=== PATIENT | female | born 1950 | race Caucasian/White ===

== ENCOUNTER 2023-11-27 09:05 | Outpatient (CLI) | payer MEDICARE, OTHER, SELFPAY ==
[2023-11-27 16:30] LABS: Basophils # 0.1 K/mm3 (0-0.2); Basophils % 1.1 % (0.1-2.0); Eosinophils # 0.2 K/mm3 (0.0-0.4); Eosinophils % 2.8 % (0.1-12.0); Hematocrit 45.4 % (37.0-47.0); Hemoglobin 14.2 g/dL (12.2-16.2); Lymphocytes # 1.6 K/mm3 (0.7-4.5); Lymphocytes % 22.4 % (10-50); Mean Corpuscular HGB Conc 31.3 g/dL (31.8-35.4); Mean Corpuscular Hemoglobin 30.8 pg (27.0-31.2); Mean Corpuscular Volume 98.4 fl (81-99); Mean Platelet Volume 11.2 fl (7.4-10.4); Monocytes # 0.8 K/mm3 (0.1-1.0); Monocytes % 11.4 % (1.7-9.3); Neutrophils # 4.5 K/mm3 (1.8-7.8); Neutrophils % 62.4 % (37.0-80.0); Platelet Count 312 K/mm3 (142-424); Red Blood Count 4.61 M/mm3 (4.20-5.40); Red Cell Distribution Width 13.7 % (11.5-17.5); White Blood Count 7.2 K/mm3 (4.8-10.8)
[2023-11-27 17:18] LABS: Alanine Aminotransferase 20 U/L (12-78); Albumin Level 3.8 g/dl (3.5-5.0); Albumin/Globulin Ratio 1.2 (1.1-1.8); Alkaline Phosphatase 70 U/L (38-126); Aspartate Amino Transferase 25 U/L (14-36); Bilirubin,Total 0.6 mg/dl (0.2-1.3); Blood Urea Nitrogen 12 mg/dl (7-17); Carbon Dioxide 28 mmol/L (22.0-30.0); Chloride 108 mmol/L (98-107); Chol/HDL Ratio 3.7 (1-3.5); Cholesterol 184 mg/dl (140-200); Estimated Glomerular Filt Rate 61 ml/min (>60); GFR (African American) 74 ML/MIN (>60); Globulin 3.1 g/dL (1.3-3.2); Glucose 111 mg/dl (74-100); HDL Cholesterol 50 mg/dl (40-60); Sodium 140 mmol/L (136-145); Total Protein,Serum 6.9 g/dl (6.3-8.2); Triglycerides 148 mg/dl (30-150); VLDL Cholesterol 30 mg/dL (0-40)
[2023-11-27 17:29] LABS: Direct LDL Cholesterol 95.72 mg/dL (100-129)
[2023-11-27 17:37] LABS: 25-OH Vitamin D, Total 32.7 ng/mL (30-100)
[2023-11-27 17:46] LABS: Thyroid Stimulating Hormone 3.25 uIU/mL (0.465-4.68)
== END 2023-11-27 23:59 | disposition home or self-care (01) ==
LOC: LAB.DROPOF 11-28 12:27
PROVIDERS: PCP Nurse Practitioner Family; Visit Provider Nurse Practitioner Family
DX: J44.9 Chronic obstructive pulmonary disease, unspecified (principal); I25.10 Atherosclerotic heart disease of native coronary artery without angina pectoris; E03.9 Hypothyroidism, unspecified; R53.83 Other fatigue; E55.9 Vitamin D deficiency, unspecified
CPT/HCPCS: 80053; 80061; 82306; 84443; 85025

== ENCOUNTER 2023-12-12 13:01 | Outpatient (CLI) | payer MEDICARE, OTHER, SELFPAY ==
--- NOTE | 2023-12-12 13:05 | CT_ITS ---
FINAL REPORT CLINICAL HISTORY: lung cancer screening smoker smokes 5-6 cigarettes per day x 40 years hx of asthma brother and sister lung cancer COMPARISON: None FINDINGS: CT CHEST LOW DOSE SCREENING HISTORY: Screening exam for lung cancer. 73-year-old female, Current smoker, 20 pack year smoking history DOSE: CTDIvol: 2.9 mGy, DLP: Eight 5.69 mGy*cm COMPARISON: None . TECHNIQUE: Axial CT without IV contrast administration using low dose protocol. This study was performed with techniques to keep radiation doses as low as reasonably achievable, (ALARA). Individualized dose reduction techniques using automated exposure control or adjustment of mA and/or kV according to the patient's size were employed. FINDINGS: No acute lung disease is present . No pulmonary lesions are seen suspicious for neoplasm. There is mild lingular scarring versus atelectasis. No pleural or pericardial effusion is seen . No adenopathy or mass lesion is present . IMPRESSION: No mass or nodule identified on today's examination. LUNG RADS CATEGORY 1 RECOMMENDATION: 12 month LDCT follow up Reviewed, Interpreted and Dictated by Lotus Graf MD Transcribed by Yajaira Rayo Authenticated and [facility]
== END 2023-12-12 23:59 | disposition home or self-care (01) ==
LOC: RAD 13:02
PROVIDERS: PCP Nurse Practitioner Family; Visit Provider Nurse Practitioner Family
DX: F17.210 Nicotine dependence, cigarettes, uncomplicated (principal); Z12.2 Encounter for screening for malignant neoplasm of respiratory organs
CPT/HCPCS: 71271

== ENCOUNTER 2025-03-03 09:46 | Outpatient (CLI) | payer MEDICARE, OTHER, SELFPAY ==
[2025-03-03 18:01] LABS: Hematocrit 44.4 % (37.0-47.0); Hemoglobin 13.7 g/dL (12.2-16.2); Immature Granulocytes % 0.2 %; Mean Corpuscular HGB Conc 30.9 g/dL (31.8-35.4); Mean Corpuscular Hemoglobin 29.4 pg (27.0-31.2); Mean Corpuscular Volume 95.3 fl (81-99); Nucleated Red Blood Cells % 0 %; Platelet Count 260 K/mm3 (142-424); Red Blood Count 4.66 M/mm3 (4.20-5.40); Red Cell Distribution Width-SD 47.5 fL; White Blood Count 8.4 K/mm3 (4.8-10.8)
[2025-03-03 18:12] LABS: Alanine Aminotransferase 21 U/L (12-78); Albumin Level 4.3 g/dl (3.5-5.0); Albumin/Globulin Ratio 1.5 (1.1-1.8); Alkaline Phosphatase 81 U/L (38-126); Anion Gap 10.8 mEq/L (5-15); Aspartate Amino Transferase 26 U/L (14-36); Bilirubin,Total 0.7 mg/dl (0.2-1.3); Blood Urea Nitrogen 10 mg/dl (7-17); Calcium 9.0 mg/dl (8.4-10.2); Carbon Dioxide 26 mmol/L (22.0-30.0); Chloride 105 mmol/L (98-107); Cholesterol 164 mg/dl (140-200); Creatinine,Serum 1.10 mg/dl (0.52-1.04); Estimated Glomerular Filt Rate 48 ml/min (>60); GFR (African American) 59 ML/MIN (>60); Globulin 2.9 g/dL (1.3-3.2); Glucose 129 mg/dl (74-100); HDL Cholesterol 55 mg/dl (40-60); Potassium 3.8 mmoL/L (3.5-5.1); Sodium 138 mmol/L (136-145); Total Protein,Serum 7.2 g/dl (6.3-8.2); Triglycerides 169 mg/dl (30-150)
[2025-03-03 18:30] LABS: 25-OH Vitamin D, Total 23.9 ng/mL (30-100)
--- OUTSIDE RECORDS SUMMARY | 2025-03-04 09:31 | XMS_ITS | Encounter Summary ---
Author Organization Healthcare Address [address] [id number] Care Team Providers Care Equipment Maint Tech Name Role Phone Kenia Pruett Primary Care Provider [phone] Encounter Details Date Type Department Care Team (Late st Contact Info) Description 02/15/2025 Telephone [facility] [address] [place] [address] Do Chow, PharmD None None Social History Tobacco Use Types Packs/Day Years Used Date Smoking Tobacco: Some Days Cigarettes 0.5 0.3 Started: 11/14/2024 Smokeless Tobacco: Never Alcohol Use Standard Drinks/Week Comments Never 0 (1 standard drink = 0.6 oz pur e alcohol) Humiliation, Afraid, Rape, and Kick questionnair e Answer Date Recorded Within the last year, have y ou been afraid of your partner or ex-partner? No 11/19/2024 Within the last year, have y ou been humiliated or emotionally abused in other ways by your partner or ex-partner? No Within the last year, have y ou been kicked, hit, slapped, or otherwise physically hurt by your partner or ex-partner? No 11/19/2024 Within the last year, have y ou been raped or forced to have any kind of sexual activity by your partner or ex-partner? No 11/19/2024 AUDIT-C Answer Date Recorded Q1: How often do you have a drink containing alcohol? Never 11/18/2024 Q2: How many drinks containi ng alcohol do you have on a typical day when you are drinking? Patient does not drink Q3: How often do you have si x or more drinks on one occasion? Never 11/18/2024 Hunger Vital Sign Answer Date Recorded Within the past 12 months, y ou worried that your food would run out before you got the money to buy more. Never true 11/20/19 25 Within the past 12 months, t he food you bought just didn't last and you didn't have money to get more. Never true 11/19/2024 PRAPARE - Transportation Answer Date Re corded In the past 12 months, has l ack of transportation kept you from medical appointments or from getting medications? No 07/2024 In the past 12 months, has l ack of transportation kept you from meetings, work, or from getting things needed for daily living? No 11/19/2024 Housing Stability Vital Sign Answer Devante e Recorded In the last 12 months, was t here a time when you were not able to pay the mortgage or rent on time? No 11/19/2024 In the past 12 months, how m any times have you moved where you were living? 0 11/19/2024 At any time in the past 12 m onths, were you homeless or living in a retirement (including now)? No 11/19/2024 [facility] Utilities Answer Date Recorded In the past 12 months has th e electric, gas, oil, or water company threatened to shut off services in your home? No 11/19/2024 Comments Unknown Sex and Gender Information Value Date Recorded Sex Assigned at Not on file Legal Sex Female 8:04 PM EDT Gender Identity Not on file Sexual Orientation Not on file documented as of this encounter Miscellaneous Notes * Telephone Encounter - Do Chow PharmD - 02/15/2025 11:03 AM EST Medication Therapy Management team attempted to reach Patient, however unable to reach patient after 3 attempts MTM Platform: Transition of Care Refill Outreach Additional information:invalid phone number documented in this encounter Plan of Treatment Not on file documented as of this encounter Visit Diagnoses Not on filedocumented in this encounter Additional Health Concerns Assessment Noted Time A Body Mass Index follow-up plan has been documented for the patient 11/19/2024 2:26 PM EDT documented as of this encounter Care Teams Equipment Maint Tech Relationship Specialty Start Date End Date Kenia Pruett PA [address] [place] [address] PCP - General 11/18/24 documented as of this encounter
--- OUTSIDE RECORDS SUMMARY | 2025-03-04 09:31 | XMS_ITS | Encounter Summary ---
Author Organization Healthcare Address [address] [place] [address] Care Team Providers Care Medical Artist Name Role Phone Kenia Pruett Primary Care Provider Encounter Details Date Type Department Care Team (Late st Contact Info) Description 11/18/2024 Ophth Exam [facility] [address] [place] [address] Emerald De Souza MD [address] [place] [address] Social History Tobacco Use Types Packs/Day Years [...] any time in the past 12 m [facility], were you homeless or living in a intermediate (including now)? No 11/19/2024 [facility] Utilities Answer Date Recorded In the past [...] on file documented as of this encounter Functional Status * Question Answer Date of Assessment Author Precautions Environmental surveillance 11/19/2024 12: 00 PM EDT Rachel Lester * AUDIT-C Score Answer Date of Assessment Author 0 11/18/2024 6:21 PM EDT Julián Carlos RN * Question Answer Date of Assessment Author Q1: How often do you have a drink containing alcohol? Never 11/18/2024 6:21 PM PATRICIAT Mirta Carlos RN Q2: How many drinks containing alcohol do you have on a typical day when you are drinking? Patient does not drink 11/18/2024 6:21 PM PATRICIAT Julián Carlos RN Q3: How often do you have six or more drinks on one occasion? Never 11/18/2024 6:21 PM EDT Mirta Carlos RN * Question Answer Date of Assessment Author Precautions Environmental surveillance 11/19/2024 12: 00 PM EDT Rachel Lester * Calculated C-SSRS Risk Score (Lifetime/Recent) Answer Date of Assessment Author No Risk Indicated 11/19/2024 12:00 PM EDT Rachel Pino * Question Answer Date of Assessment Author 1. Wish to be (Past 1 Month) No 025 12:00 PM EDT Rachel Lester 2. Non-Specific Active Suici summer Thoughts (Past 1 Month) No 11/19/2024 12:00 PM EDT Rachel Lester 6. Suicidal Behavior (Lifetime) No 12:00 PM EDT Rachel Lester documented as of this encounter Mental Status * Question Answer Entry Date Author Inna Environmental surveillance 11/19/2024 12: 00 PM EDT Rachel Lester documented in this encounter Plan of Treatment Not on file documented as of this encounter Visit Diagnoses Not on filedocumented in this encounter Additional Health Concerns Assessment Noted Time A Body Mass Index follow-up plan has been documented for the patient 11/19/2024 2:26 PM EDT documented as of this encounter Care Teams Medical Artist Relationship Specialty Start Date End Date Kenia Pruett PA [address] [place] [address] PCP - General 11/18/24 documented as of this encounter
--- OUTSIDE RECORDS SUMMARY | 2025-03-04 09:31 | XMS_ITS | Clinical Summary ---
Author Organization [facility] Address [address] [place] [address] Care Team Providers Care Occupational Psychologist Name Role Phone Kenia Pruett Primary Care Provider Allergies Active Allergy Reactions Criticality Noted Date Comments Iodine Other - please docum ent in the comment field Low 11/18/2024 Pt states she feels very weak and her heart flutters Medications Fluticasone-Ume clidin-Vilant (Trelegy Ellipta) 100-62.5-25 MCG/ACT aerosol powder Inhale 1 puff daily. Active montelukast (Singulair) 10 MG tablet Take 1 tablet by mouth nightly. Active clobetasol (Temovate) 0.05 % cream Apply 1 Application topically. Active atorvastatin (Lipitor) 40 MG tablet Take 1 tablet by mouth nightly. 30 tablet 11 5 11/15/19 26 Active losartan (Cozaar) 25 MG tablet Take 1 tablet by mouth daily. 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, were you homeless or living in a intermediate (including now)? No 11/19/2024 [facility] Utilities Answer Date Recorded In the past 12 months has e [employer], gas, oil, or water company threatened to shut off services in your home? No 11/19/2024 Comments Unknown Sex and Gender Information Value Date Recorded Sex Assigned at Not on file Legal Sex Female 8:04 PM EDT Gender Identity Not on file Sexual Orientation Not on file Last Filed Vital Signs Vital Sign Reading Time Taken Comments Blood Pressure 163/63 11/19/2024 1:29 PM EDT Pulse 77 11/19/2024 1:29 PM EDT Temperature 36.7 C (98.1 F) 11/19/2024 11:00 AM EDT Respiratory Rate 16 11/19/2024 8:50 AM EDT Oxygen Saturation 93% 11/19/2024 3:44 AM EDT Inhaled Oxygen Concentration - - Weight 102 kg (225 lb 12 oz) 11/18/2024 11:40 AM EDT Height 157.5 cm (5' 2 ) 11/18/2024 11:40 AM EDT Body Mass Index 41.29 11/18/2024 11:40 AM EDT Plan of Treatment Health Maintenance Due Date Last Done Comments [facility]-Bone Density Scan 1950 [facility]-Depression Screening 1950 [facility]-Hepatitis C Screening 1950 [facility]-Medicare Annual Wellness (AWV) 1950 [facility]-/Child/Adol SDOH Screenings 1950 Diabetes: Dental Exam 12/27/1959 [facility]-DTaP,Tdap,and Td Vaccines (1 - Tdap) 1968 CT Colonography 1994 Colonoscopy 1994 FIT-DNA 1994 FIT 1994 FOBT 1994 Sigmoidoscopy 1994 [facility]-Colorectal Cancer Screening 1994 [facility]-Zoster Vaccines (1 of 2) 12/27/1999 [id number] Vaccine ( season) 2024 11/24/2023, 03/14/2023, 04/29/2022, Additional history exists [facility]-Influenza Vaccine (#1) 11/15/202411/23, 12/17/2022, 12/11/2021, Additional history exists [facility]-RSV Vaccine: 60+ Years or (1 - 1-dose 75+ series) 2024 [facility]-Diabetes: Hemoglobin A1C 05/18/2025 11/18/2024 [facility]- SDOH Screenings 05/19/2025 [facility]-Adult SDOH Screenings 05/19/2025 11/19/2024 [facility]-Pneumococcal Vaccine: 50+ Years Completed 12/03/2020, 12/03/2019 [facility]-Obesity Intervention Completed 11/18/2024 HPV Vaccines (No Doses Required) Completed [facility]-HIB Vaccines Aged Out No longer e ligible based on patient's age to complete this topic [facility]-Hepatitis A Vaccines Aged Out No longer eligible based on patient's age to complete this topic [facility]-IPV Vaccines Aged Out No longer e ligible based on patient's age to complete this topic [facility]-Rotavirus Vaccines Aged Out No lo nger eligible based on patient's age to complete this topic Procedures Procedure Name Priority Date/Time Associated Diagnosis Comments HEMOGLOBIN A1C STAT 11/18/2024 11:11 AM EDT from Last 3 Months or Most Recently Relevant to Health Maintenance Results * (ABNORMAL) Hemoglobin A1c (11/18/2024 11:11 AM EDT) Hemoglobin A1c 6.6(H) <5.7 % 11/18/2024 2:34 PM EDT [facility] Blood Venous blood specimen / Unknown Venipuncture / Unknown 11/18/2024 11:11 AM EDT 11/18/2024 11:21 AM EDT Narrative [facility] - 11/18/2024 2:34 PM EDT HA1C Interpretive Data: Diagnosis of Diabetes: Diabetic > or = 6.5% Pre-diabetic 5.7 to 6.4% Non-diabetic < or = 5.6% Glycemic Targets for Type I and Type II Diabetics: Non- Adults <7.0% Adults <6.0% Children and Adolescents <7.5% Source: [place] [employer]. Standards of medical care in diabetes,2017. Diabetes Care.2017:40 (suppl 1):S1-S135. Israel Hogan MD LAB BLOOD ORDERABLES Final Result [facility] [address] [place] [address] from Last 3 Months or Most Recently Relevant to Health Maintenance Insurance MEDICARE [employer] Advance Directives * Full Code (Latest Code Status on File) Date Activated Date Inactivated Comments 11/18/2024 3:53 PM 11/19/2024 5:29 PM Question Answer Comments I have reviewed the capacity from the link above and, if needed, have updated to appropriate status: Yes Care Teams Occupational Psychologist Relationship Specialty Start Date End Date Kenia Pruett PA [address] [place] [address] PCP - General 11/18/24
--- OUTSIDE RECORDS SUMMARY | 2025-03-04 09:31 | XMS_ITS | Clinical Summary ---
[facility] Organization [facility] Address [address] [place] [address] Care Team Providers Care Healthcare Applications Analyst Name Role Phone Provider, No Known Primary Care Provider Unavail able Immunizations Immunization Administration Dates Next Due Fluzone High-Dose 65+YRS 01/26/2016 Social History Tobacco Use Types Packs/Day Years Used Date Smoking Tobacco: Never Assessed Abuse Screen Answer Date Recorded Unsafe at Home or Work/School Not on file Feels Threatened by Someone? Not on file 01/2023 Does Anyone Keep You from Co ntacting Others or Doint Things Outside the Home? Not on file 12/25/2022 Physical Sign of Abuse Present Not on file 1 Housing Stability Answer Date Recorded Current Living Arrangements Not on file 12/15 Potentially Unsafe Housing Conditions Not on larry e 12/25/2022 Family and Community Support Answer Devante e Recorded Help with Day-to-Day Activities Not on file 12/25/2022 Lonely or Isolated Not on file 12/25/2022 Employment Answer Date Recorded Do you want help finding or keeping work or a britton b? Not on file 12/25/2022 Disabilities Answer Date Recorded Concentrating, Remembering, or Making Decisions Difficulty Not on file 12/25/2022 Doing Errands Independently Difficulty Not on fi le 12/25/2022 Education Answer Date Recorded Help with school or training? Not on file Preferred Language Not on file 12/25/2022 Comments Unknown Sex and Gender Information Value Date Recorded Sex Assigned at Not on file Legal Sex Female 11:13 AM EST Gender Identity Not on file Sexual Orientation Not on file Plan of Treatment Health Maintenance Due Date Last Done Comments DXA SCAN 1950 TDAP/TD VACCINES (1 - Tdap) 1968 COLOGUARD 1994 COLON CANCER SCREENING 5 YEAR SIGMOIDOSCOPY 1994 COLONOSCOPY [address] SCREENING [address] COLONOGRAPHY 1994 FECAL OCCULT BLOOD TEST 1994 FIT Testing (1 year) 1994 Pneumococcal Vaccine 50+ (1 of 1 - PCV) 12/27/1999 ZOSTER VACCINE (1 of 2) 12/27/1999 ANNUAL PHYSICAL 11/22/2016 HEPATITIS C SCREENING 11/22/2016 INFLUENZA VACCINE 10/15/2024 01/26/2016 COVID-19 Vaccine ( - 2023- season) 2024 RSV Vaccine - Adults (1 - 1-dose 75+ series) 5 Insurance MEDICARE A & B Care Teams Healthcare Applications Analyst Relationship Specialty Start Date End Date Provider, [place] [address] PCP - General 01/26/16
[2025-03-04 10:44] LABS: Hemoglobin A1C 6.2 % (4.0-6.0)
== END 2025-03-03 23:59 | disposition home or self-care (01) ==
LOC: LAB.DROPOF 03-04 09:26
PROVIDERS: PCP Nurse Practitioner Family; Visit Provider Nurse Practitioner Family
DX: I63.9 Cerebral infarction, unspecified (principal); Z11.4 Encounter for screening for human immunodeficiency virus [HIV]; E55.9 Vitamin D deficiency, unspecified; R73.09 Other abnormal glucose
CPT/HCPCS: 80053; 80061; 82306; 83036; 85025; 87389